=== PATIENT | female | born 2000 | race African-American/Black ===

== ENCOUNTER 2018-08-16 16:20 | Emergency (ER) | payer MEDICAID ==
[~2018-08-16] VITALS: Ht 162.6 cm; Wt 77.1 kg
[2018-08-16 17:33] VITALS: BP 120/78
[2018-08-16 18:04] VITALS: BP 120/78
--- NOTE | 2018-08-16 18:04 | Emergency Room Report ---
History of Present Illness General Chief Complaint: Nausea Present Illness HPI Pt. c/o mild nausea. She is five weeks LMP and requests test. She says she cannot afford this. She is talking on an iphone as she tells me this. No vomiting, no trauma, no vag bleed, no abd pain. No vag d/c. Allergies: Coded Allergies: No Known Allergies (Unverified , 08/16/18) Patient History Last Menstrual Period: 08/10/18 Nursing Documentation-PMH Hx Cardiac Problems: No - sickle cell, enlarged Hr, anemia Hx Hypertension: Yes Review of Systems Constitutional: Reports: see HPI Eye: Reports: no symptoms ENT: Reports: no symptoms Respiratory: Reports: no symptoms Cardiovascular: Reports: no symptoms Gastrointestinal: Reports: nausea Genitourinary: Reports: no symptoms Musculoskeletal: Reports: no symptoms Skin: Reports: no symptoms Psychiatric: Reports: no symptoms Neurological: Reports: no symptoms Endocrine: Reports: no symptoms Hematologic/Lymphatic: Reports: no symptoms Allergic: Reports: no symptoms All Other Systems: negative except mentioned in HPI Physical Exam Vital Signs Date Time Temp Pulse Resp B/P (MAP) Pulse Ox O2 Delivery O2 Flow Rate FiO2 08/16/18 16:26 98.4 67 18 120/78 98 Room Air Sp02 EP Interpretation: reviewed, normal General Appearance: normal inspection, well appearing, no apparent distress, alert, GCS 15, non-toxic Head: normocephalic, atraumatic Eyes: bilateral eye normal inspection, bilateral eye PERRL, bilateral eye EOMI ENT: normal ENT inspection, hearing grossly normal, normal pharynx, no angioedema, normal voice, moist mucus membranes Neck: normal inspection, full range of motion, supple, no meningismus, no bony tend Respiratory: normal inspection, lungs clear, normal breath sounds, no rhonchi, no respiratory distress, no retraction, no accessory muscle use, no wheezing Cardiovascular #1: normal inspection, regular rate, rhythm, no edema Gastrointestinal: normal inspection, normal bowel sounds, non tender, soft, no mass, non-distended Musculoskeletal: gait/station normal, normal range of motion Neurologic: normal inspection, alert, oriented x3, responsive, motor strength/ tone normal Psychiatric: normal inspection, judgement/insight normal, memory normal Suicide Risk Assessment: Suicidal Ideation: No Had intent to initiate attempt: No Pt's plan for suicide attempt: No Has means to complete attempt: No Skin: normal inspection, normal color, no rash, warm/dry Medical Decision Making Diagnostic Impression: Primary Impression: Nausea alone Last Vital Signs Date Time Temp Pulse Resp B/P (MAP) Pulse Ox O2 Delivery O2 Flow Rate FiO2 08/16/18 17:33 98.4 68 18 120/78 98 Room Air Disposition: HOME, SELF-CARE Referrals: [facility],REFERRING (PCP) Patient Instructions: Nausea, Adult Bartolo Gutierrez M.D. Aug 16, 2018 18:04
== END 2018-08-16 18:19 | disposition home or self-care (01) ==
LOC: EMR 17:34
DX: O26.891 Other specified pregnancy related conditions, first trimester (principal); Z3A.01 Less than 8 weeks gestation of pregnancy; R11.0 Nausea
CPT/HCPCS: 81025; 99283